=== PATIENT | female | born 1990 | race Caucasian/White ===

== ENCOUNTER 2018-12-23 10:42 | Day surgery (SDC) | payer OTHER ==
[2018-12-23] MEDS ORDERED: PROPOFOL 40 ML (11:52)
== END 2018-12-23 12:33 | disposition home or self-care (01) ==
LOC: GIL 10:42
DX: K44.9 Diaphragmatic hernia without obstruction or gangrene (principal); K21.9 Gastro-esophageal reflux disease without esophagitis
CPT/HCPCS: 43239; 84703; 88305; 88312